=== PATIENT | male | born 1985 | race American Indian/Alaskan Native ===

== ENCOUNTER 2017-01-31 21:19 | Emergency (ER) | payer MEDICAID, OTHER | END 2017-01-31 21:49 | disposition left against medical advice (07) | LOC: DL.ED 21:19 | DX: Z53.21 Procedure and treatment not carried out due to patient leaving prior to being seen by health care provider (principal) ==

== ENCOUNTER 2021-07-15 18:35 | Emergency (ER) | payer MEDICAID, OTHER ==
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
[2021-07-15 19:41] LABS: ANION GAP 18.2 mEq/L (7-13); CHLORIDE,CL 109 mmol/L (98-107); SODIUM,NA 147 mmol/L (136-145)
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
[2021-07-15] MEDS ORDERED: MVI, Adult with Vitamin K 10 ML, Folic Acid 1 MG, Thiamine 100 MG in Lactated Ringers 1... IV ONE ×4 (20:59)
[2021-07-15 22:43] LABS: BENZODIAZEPINE,URINE NEGATIVE (NEGATIVE); MDMA (ECSTASY), URINE NEGATIVE (NEGATIVE); METHADONE,URINE NEGATIVE (NEGATIVE); METHAMPHETAMINES,URINE NEGATIVE (NEGATIVE); OPIATES,URINE NEGATIVE (NEGATIVE)
[2021-07-15 22:44] LABS: AMPHETAMINES,URINE NEGATIVE (NEGATIVE); BARBITURATES,URINE NEGATIVE (NEGATIVE); OXYCODONE,URINE NEGATIVE (NEGATIVE); PHENCYCLIDINE,URINE NEGATIVE (NEGATIVE); TCA,URINE NEGATIVE (NEGATIVE)
[2021-07-15] MEDS ORDERED: Cephalexin 500 MG Cap PO ONE (22:45)
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
[2021-07-16 03:02] VITALS: BP 144/92; PULSE 90
[2021-07-16] MEDS ORDERED: Lidocaine 1% 30 ML SDV INJECT ONE (03:34)
== END 2021-07-16 04:01 | disposition home or self-care (01) ==
LOC: DL.ED 18:35
DX: S02.82XA Fracture of other specified skull and facial bones, left side, initial encounter for closed fracture (principal); F10.10 Alcohol abuse, uncomplicated; I10 Essential (primary) hypertension; E11.9 Type 2 diabetes mellitus without complications; Z20.822 Contact with and (suspected) exposure to COVID-19; Y90.8 Blood alcohol level of 240 mg/100 ml or more; Y04.0XXA Assault by unarmed brawl or fight, initial encounter
CPT/HCPCS: 36415; 70450; 70486; 72125; 80053; 80305; 80307; 81001; 85025; 87635; 96365; 99285; A9270; J3411; J7120; J3490; U0002

== ENCOUNTER 2021-09-26 10:34 | Emergency (ER) | payer BC ==
[2021-09-26 11:41] VITALS: BP 158/82; PULSE 93
[2021-09-26 12:12] LABS: ANION GAP 18.3 mEq/L (7-13); CHLORIDE,CL 103 mmol/L (98-107); SODIUM,NA 139 mmol/L (136-145)
[2021-09-26] MEDS ORDERED: Calcium Chloride 10% 1 GM/10 ML Syringe IVPUSH ONE (12:23)
== END 2021-09-26 13:04 | disposition home or self-care (01) ==
LOC: DL.ED 10:34
DX: E11.649 Type 2 diabetes mellitus with hypoglycemia without coma (principal); F10.10 Alcohol abuse, uncomplicated; E83.51 Hypocalcemia; I10 Essential (primary) hypertension; Z79.899 Other long term (current) drug therapy; Z79.84 Long term (current) use of oral hypoglycemic drugs; Z20.822 Contact with and (suspected) exposure to COVID-19
CPT/HCPCS: 36415; 80053; 80307; 85025; 87430; 96374; 99285-25; U0002

== ENCOUNTER 2023-03-12 02:17 | Emergency (ER) | payer BC, MEDICAID ==
[2023-03-12 02:18] VITALS: BP 157/70; PULSE 125
[2023-03-12] MEDS ORDERED: Sodium Chloride 0.9% 10 ML Syringe FLUSH PRN (02:18)
[2023-03-12] MEDS ORDERED: Sodium Chloride 0.9% 1,000 ML IV ONE ×3 (02:20→05:28)
[2023-03-12 02:31] LABS: BASOPHILS PERCENT AUTO 0.2 % (0.0-1.0); EOSINOPHILS PERCENT AUTO 0.7 % (1.0-3.0); HEMATOCRIT 31.6 % (40.0-54.0); HEMOGLOBIN 9.9 g/dL (14.0-18.0); LYMPHOCYTES PERCENT AUTO 8.2 % (20.5-50.1); MEAN CORPUSCULAR HEMOGLOBIN 25.2 pg (27.0-34.0); MEAN CORPUSCULAR HGB CONC 31.3 g/dL (33.0-35.0); MEAN CORPUSCULAR VOLUME 80.4 fL (80-100); MONOCYTES PERCENT AUTO 6.7 % (2-8); NEUTROPHILS PERCENT AUTO 84.2 % (42.2-75.2); PLATELET COUNT,PLT 121 10^3/uL (150-450); RED BLOOD CELL COUNT 3.93 10^6/uL (4.6-6.2); WHITE BLOOD CELL COUNT,WBC 8.5 10^3/uL (5.0-10.0)
[2023-03-12 02:52] LABS: PROTHROMBIN TIME 10.6 SEC (9.0-12.0); PTT,PARTIAL THROMBOPLSTIN TIME 24.3 SEC (22.0-34.0)
[2023-03-12 02:56] LABS: LACTIC ACID 3.4 mmol/L (0.4-2.0)
[2023-03-12 03:00] LABS: ALANINE AMINOTRANSFERASE,ALT 80 U/L (16-63); ALKALINE PHOSPHATASE 107 U/L (46-116); ANION GAP 16.9 mEq/L (7-13); ASPARTATE AMNIOTRANSFERASE,AST 73 U/L (15-37); BILIRUBIN TOTAL 0.4 mg/dL (0.2-1.0); BLOOD UREA NITROGEN,BUN 10 mg/dL (7-18); BUN/CREATININE RATIO 9.5 (No establ ref range); CALCIUM 7.5 mg/dL (8.5-10.1); CARBON DIOXIDE,CO2 23 mmol/L (21-32); CHLORIDE,CL 107 mmol/L (98-107); CREATININE 1.05 mg/dL (0.70-1.30); EST CRCL DRUG DOSING (CG) 105.72 mL/min; GLUCOSE RANDOM 239 mg/dL (70-99); POTASSIUM,K 3.9 mmol/L (3.5-5.1); PROTEIN TOTAL,TP 8.4 g/dL (6.4-8.2); SODIUM,NA 143 mmol/L (136-145)
[2023-03-12 03:01] LABS: A/G RATIO 0.56; C-REACTIVE PROTEIN < 0.2 mg/dL (0.0-0.9); ESTIMATED GFR 94 mL/min (>=60); ETHANOL BLOOD MEDICAL 358 mg/dL (0)
[2023-03-12 03:02] LABS: MAGNESIUM 0.8 mg/dL (1.8-2.4)
[2023-03-12] MEDS ORDERED: Magnesium Sulfate/Water 2 GM in Premix Bag 1 BAG IV ONE ×2 (03:03→03:11)
[2023-03-12] MEDS ORDERED: Acetaminophen 500 MG Tab PO ONE (05:27)
[2023-03-12 05:48] LABS: APPEARANCE,URINE CLEAR (CLEAR); BILIRUBIN,URINE NEGATIVE (NEGATIVE); COLOR,URINE YELLOW (YELLOW); GLUCOSE,URINE 100 (NEGATIVE); KETONES,URINE NEGATIVE (NEGATIVE); LEUKOCYTE ESTERASE,URINE NEGATIVE (NEGATIVE); NITRITE,URINE NEGATIVE (NEGATIVE); OCCULT BLOOD,URINE NEGATIVE (NEGATIVE); PH,URINE 5.5 (5.0-9.0); PROTEIN,URINE NEGATIVE (NEGATIVE); UROBILINOGEN,URINE 0.2 mg/dL (0.2-1.0)
[2023-03-12 05:50] LABS: AMPHETAMINES,URINE NEGATIVE (NEGATIVE); BARBITURATES,URINE NEGATIVE (NEGATIVE); BENZODIAZEPINE,URINE NEGATIVE (NEGATIVE); MDMA (ECSTASY), URINE NEGATIVE (NEGATIVE); METHADONE,URINE NEGATIVE (NEGATIVE); METHAMPHETAMINES,URINE NEGATIVE (NEGATIVE); OPIATES,URINE NEGATIVE (NEGATIVE); OXYCODONE,URINE NEGATIVE (NEGATIVE); PHENCYCLIDINE,URINE NEGATIVE (NEGATIVE); TCA,URINE NEGATIVE (NEGATIVE)
[2023-03-12 06:22] LABS: MAGNESIUM 1.7 mg/dL (1.8-2.4)
== END 2023-03-12 07:43 | disposition home or self-care (01) ==
LOC: DL.ED 02:17
DX: F10.920 Alcohol use, unspecified with intoxication, uncomplicated (principal); E83.42 Hypomagnesemia; R50.9 Fever, unspecified; Z20.822 Contact with and (suspected) exposure to COVID-19
CPT/HCPCS: 36415; 80053; 80305; 80307; 81003; 82947; 83605; 83735; 84100; 84484; 85025; 85610; 85730; 86140; 86788; 87635; 87804; 93005; 96361; 96365; 96366; 99285; A9270; J3475; J7030; 93010; 99284; J3490; U0002

== ENCOUNTER 2023-05-08 18:11 | Emergency (ER) | payer MEDICAID ==
[2023-05-08] MEDS ORDERED: Sodium Chloride 0.9% 10 ML Syringe FLUSH PRN (18:15)
[2023-05-08 18:32] LABS: BASOPHILS PERCENT AUTO 0.1 % (0.0-1.0); LYMPHOCYTES PERCENT AUTO 8.6 % (20.5-50.1); MEAN CORPUSCULAR HEMOGLOBIN 26.1 pg (27.0-34.0); MEAN CORPUSCULAR HGB CONC 31.6 g/dL (33.0-35.0); MEAN CORPUSCULAR VOLUME 82.6 fL (80-100); MONOCYTES PERCENT AUTO 3.9 % (2-8); NEUTROPHILS PERCENT AUTO 87.4 % (42.2-75.2); PLATELET COUNT,PLT 160 10^3/uL (150-450); WHITE BLOOD CELL COUNT,WBC 11.9 10^3/uL (5.0-10.0)
[2023-05-08] MEDS ORDERED: Tranexamic Acid 1,000 MG in Sodium Chloride 0.9% 500 ML IV ONE (18:35)
[2023-05-08] MEDS ORDERED: Pantoprazole 40 MG Vial IVPUSH ONE (18:37)
[2023-05-08] MEDS ORDERED: Pantoprazole 40 MG in Sodium Chloride 0.9% 100 ML IV SCH (18:45)
[2023-05-08 18:47] LABS: INR 1.2 (0.9-1.2); PROTHROMBIN TIME 12.6 SEC (9.0-12.0)
[2023-05-08 18:53] LABS: ALANINE AMINOTRANSFERASE,ALT 37 U/L (16-63); ALBUMIN 2.2 g/dL (3.4-5.0); ALKALINE PHOSPHATASE 126 U/L (46-116); ASPARTATE AMNIOTRANSFERASE,AST 44 U/L (15-37); BILIRUBIN TOTAL 1.1 mg/dL (0.2-1.0); BLOOD UREA NITROGEN,BUN 52 mg/dL (7-18); BUN/CREATININE RATIO 35.1 (No establ ref range); C-REACTIVE PROTEIN 3.17 ng/dL (<=0.30); CALCIUM 8.4 mg/dL (8.5-10.1); CARBON DIOXIDE,CO2 21 mmol/L (21-32); CHLORIDE,CL 99 mmol/L (98-107); CREATININE 1.48 mg/dL (0.70-1.30); EST CRCL DRUG DOSING (CG) 75.01 mL/min; GLUCOSE RANDOM 309 mg/dL (70-99); PROTEIN TOTAL,TP 7.1 g/dL (6.4-8.2); SODIUM,NA 131 mmol/L (136-145)
[2023-05-08 19:06] LABS: A/G RATIO 0.45; ESTIMATED GFR 62 mL/min (>=60)
[2023-05-08 19:07] LABS: ETHANOL BLOOD MEDICAL < 3 mg/dL (0); LACTIC ACID 6.1 mmol/L (0.4-2.0); MAGNESIUM 0.9 mg/dL (1.8-2.4)
[2023-05-08] MEDS ORDERED: Magnesium Sulfate/Water 2 GM in Premix Bag 1 BAG IV ONE (19:17)
[2023-05-08] MEDS ORDERED: Ondansetron 4 MG/2 ML SDV IVPUSH ONE (19:29)
[2023-05-08 20:48] VITALS: BP 104/54; PULSE 134
[2023-05-08 21:33] LABS: APPEARANCE,URINE SLIGHTLY CLOUDY (CLEAR); BILIRUBIN,URINE NEGATIVE (NEGATIVE); COLOR,URINE DARK YELLOW (YELLOW); GLUCOSE,URINE 100 (NEGATIVE); KETONES,URINE TRACE (NEGATIVE); LEUKOCYTE ESTERASE,URINE TRACE (NEGATIVE); NITRITE,URINE NEGATIVE (NEGATIVE); OCCULT BLOOD,URINE TRACE-INTACT (NEGATIVE); PH,URINE 5.5 (5.0-9.0); PROTEIN,URINE NEGATIVE (NEGATIVE); UROBILINOGEN,URINE 0.2 mg/dL (0.2-1.0)
[2023-05-08 21:35] LABS: AMPHETAMINES,URINE NEGATIVE (NEGATIVE); BARBITURATES,URINE NEGATIVE (NEGATIVE); BENZODIAZEPINE,URINE NEGATIVE (NEGATIVE); MDMA (ECSTASY), URINE NEGATIVE (NEGATIVE); METHADONE,URINE NEGATIVE (NEGATIVE); METHAMPHETAMINES,URINE NEGATIVE (NEGATIVE); OPIATES,URINE NEGATIVE (NEGATIVE); OXYCODONE,URINE NEGATIVE (NEGATIVE); PHENCYCLIDINE,URINE NEGATIVE (NEGATIVE); TCA,URINE NEGATIVE (NEGATIVE)
[2023-05-08 21:44] LABS: BACTERIA,URINE FEW /HPF (0-FEW/HPF); EPITHELIAL CELLS,URINE FEW /HPF (NOT SEEN); MUCUS,URINE MODERATE /LPF (NOT SEEN); RBC,URINE 0-5 /HPF (0-5)
[2023-05-08 21:45] LABS: HYALINE CASTS,URINE FEW
== END 2023-05-08 22:18 ==
LOC: DL.ED 18:11
DX: K92.2 Gastrointestinal hemorrhage, unspecified (principal); N17.9 Acute kidney failure, unspecified; R00.0 Tachycardia, unspecified; F10.20 Alcohol dependence, uncomplicated; E11.65 Type 2 diabetes mellitus with hyperglycemia; E83.42 Hypomagnesemia; E87.20 Acidosis, unspecified; D62 Acute posthemorrhagic anemia; I10 Essential (primary) hypertension; E66.9 Obesity, unspecified; Z68.39 Body mass index [BMI] 39.0-39.9, adult; Z79.84 Long term (current) use of oral hypoglycemic drugs; Z79.899 Other long term (current) drug therapy
CPT/HCPCS: 36415; 36430; 80053; 80305-QW; 80307; 81001; 82272; 83605; 83735; 85025; 85610; 86140; 86850; 86900; 86901; 86920; 86922; 87086; 96365; 96366; 96368; 96375; 99285; 99285-25; C9113; J2405; J3475; J3490; J7040; P9016

== ENCOUNTER 2023-11-07 22:54 | Emergency (ER) | payer MEDICAID ==
[2023-11-07] MEDS: Sodium Chloride 0.9% 10 ML Syringe FLUSH PRN (23:19)
[2023-11-07] MEDS: Sodium Chloride 0.9% 1,000 ML IV SCH (23:22)
[2023-11-07 23:24] LABS: BASOPHILS PERCENT AUTO 2.9 % (0.0-1.0); EOSINOPHILS PERCENT AUTO 1.2 % (1.0-3.0); HEMATOCRIT 31.5 % (40.0-54.0); HEMOGLOBIN 9.8 g/dL (14.0-18.0); LYMPHOCYTES PERCENT AUTO 32.9 % (20.5-50.1); MEAN CORPUSCULAR HEMOGLOBIN 25.5 pg (27.0-34.0); MEAN CORPUSCULAR HGB CONC 31.1 g/dL (33.0-35.0); MEAN CORPUSCULAR VOLUME 81.8 fL (80-100); MONOCYTES PERCENT AUTO 7.8 % (2-8); NEUTROPHILS PERCENT AUTO 55.2 % (42.2-75.2); PLATELET COUNT,PLT 50 10^3/uL (150-450); RED BLOOD CELL COUNT 3.85 10^6/uL (4.6-6.2); WHITE BLOOD CELL COUNT,WBC 2.4 10^3/uL (5.0-10.0)
[2023-11-07 23:44] LABS: A/G RATIO 0.6; ALBUMIN 3.4 g/dL (3.4-5.0); ANION GAP 19.9 mEq/L (7-13); BILIRUBIN TOTAL 2.5 mg/dL (0.2-1.0); BUN/CREATININE RATIO 22.2 (No establ ref range); CREATININE 1.08 mg/dL (0.70-1.30); EST CRCL DRUG DOSING (CG) 101.79 mL/min; POTASSIUM,K 3.9 mmol/L (3.5-5.1); PROTEIN TOTAL,TP 9.2 g/dL (6.4-8.2)
[2023-11-08 06:35] VITALS: BP 125/77; PULSE 84
== END 2023-11-08 06:23 | disposition home or self-care (01) ==
LOC: DL.ED 22:54
DX: S40.012A Contusion of left shoulder, initial encounter (principal); F10.120 Alcohol abuse with intoxication, uncomplicated; I10 Essential (primary) hypertension; Z79.899 Other long term (current) drug therapy; Z79.84 Long term (current) use of oral hypoglycemic drugs; Y90.9 Presence of alcohol in blood, level not specified; W19.XXXA Unspecified fall, initial encounter
CPT/HCPCS: 36415; 71045; 73030-LT; 80053; 80307; 85025; 99284; J3490; J7030

== ENCOUNTER 2025-01-22 14:30 | Inpatient (IN) | payer MEDICAID ==
[2025-01-22] MEDS ORDERED: Sodium Chloride 0.9% 10 ML Syringe FLUSH PRN (14:58)
[2025-01-22 15:06] LABS: BASOPHILS PERCENT AUTO 0.6 % (0.0-1.0); EOSINOPHILS PERCENT AUTO 1.3 % (1.0-3.0); LYMPHOCYTES PERCENT AUTO 21.3 % (20.5-50.1); MONOCYTES PERCENT AUTO 16.8 % (2-8); NEUTROPHILS PERCENT AUTO 60.0 % (42.2-75.2); PLATELET COUNT,PLT 50 10^3/uL (150-450); RED BLOOD CELL COUNT 3.57 10^6/uL (4.6-6.2); WHITE BLOOD CELL COUNT,WBC 3.1 10^3/uL (5.0-10.0)
[2025-01-22 15:21] LABS: INR 1.1 (0.9-1.2); PTT,PARTIAL THROMBOPLSTIN TIME 29.3 SEC (22.0-34.0)
[2025-01-22 15:26] LABS: ALANINE AMINOTRANSFERASE,ALT 27.0 U/L (16-63); ASPARTATE AMNIOTRANSFERASE,AST 92.0 U/L (15-37); BILIRUBIN TOTAL 3.8 mg/dL (0.2-1.0); BLOOD UREA NITROGEN,BUN 9.0 mg/dL (7-18); CARBON DIOXIDE,CO2 23.0 mmol/L (21-32); CHLORIDE,CL 98.0 mmol/L (98-107); CREATININE 0.94 mg/dL (0.70-1.30); EST CRCL DRUG DOSING (CG) 115.8 mL/min; GLUCOSE RANDOM 138.0 mg/dL (70-99); POTASSIUM,K 3.1 mmol/L (3.5-5.1); PROTEIN TOTAL,TP 8.9 g/dL (6.4-8.2); SODIUM,NA 132.0 mmol/L (136-145)
[2025-01-22 15:27] LABS: LACTIC ACID 1.7 mmol/L (0.4-2.0)
[2025-01-22 15:28] LABS: A/G RATIO 0.39; ESTIMATED GFR 106.0 mL/min (>=60)
[2025-01-22 15:34] LABS: D-DIMER QUANTITATIVE 2110.0 ng/mL (0-400)
[2025-01-22] MEDS: Magnesium Sulfate 2 GM/50 mL 2 GM in Premix Bag 1 BAG IV ONE ×3 (15:43→20:00)
[2025-01-22] MEDS: Iopamidol 755 Mg/ML 100 ML Bottle IVPUSH ONE (16:07)
[2025-01-22 16:15] LABS: APPEARANCE,URINE CLEAR (CLEAR); GLUCOSE,URINE 100 (NEGATIVE); OCCULT BLOOD,URINE MODERATE (NEGATIVE)
[2025-01-22 16:18] LABS: AMPHETAMINES,URINE NEGATIVE (NEGATIVE); BARBITURATES,URINE NEGATIVE (NEGATIVE); MDMA (ECSTASY), URINE NEGATIVE (NEGATIVE); METHAMPHETAMINES,URINE NEGATIVE (NEGATIVE); OPIATES,URINE NEGATIVE (NEGATIVE); OXYCODONE,URINE NEGATIVE (NEGATIVE); PHENCYCLIDINE,URINE NEGATIVE (NEGATIVE); TCA,URINE NEGATIVE (NEGATIVE)
[2025-01-22 16:37] LABS: EPITHELIAL CELLS,URINE OCCASIONAL /HPF (NOT SEEN)
[2025-01-22] MEDS: Potassium Chloride 10 MEQ Tab.ER PO ONE (19:36)
[2025-01-22 19:39] LABS: BLOOD UREA NITROGEN,BUN 7.0 mg/dL (7-18); CARBON DIOXIDE,CO2 25.0 mmol/L (21-32); CREATININE 0.89 mg/dL (0.70-1.30); EST CRCL DRUG DOSING (CG) 122.31 mL/min; GLUCOSE RANDOM 118.0 mg/dL (70-99); POTASSIUM,K 3.0 mmol/L (3.5-5.1)
[2025-01-22 19:43] LABS: CHLORIDE,CL 100.0 mmol/L (98-107); ESTIMATED GFR 112.0 mL/min (>=60); SODIUM,NA 133.0 mmol/L (136-145)
[2025-01-22] MEDS: NS with KCl 40mEq 1,000 ML IV SCH (20:00)
[2025-01-22] MEDS ORDERED: 50% Dextrose in Water 50 ML Syringe IVPUSH PRN (23:18)
[2025-01-23 00:01] LABS: IRON,FE 52.0 ug/dL (65-175); PERCENT FE SATURATION 40.0 % (20.0-50.0)
[2025-01-23] MEDS: Furosemide 40 MG/4 ML VIAL IVPUSH ONE (00:21)
[2025-01-23] MEDS: MVI, Adult with Vitamin K 10 ML, Folic Acid 1 MG, Thiamine 100 MG in Lactated Ringers 1... IV ONE (00:21)
[2025-01-23 00:28] LABS: CHOLESTEROL HDL 23.0 mg/dL (40-59); CHOLESTEROL LDL CALCULATED 76.0 mg/dL (0-100); CHOLESTEROL TOTAL 117.0 mg/dL (0-199); FOLIC ACID 4.2 ng/mL (8.6-58.9); TSH ULTRASENSITIVE 1.7 uIU/mL (0.36-3.74)
[2025-01-23 00:38] LABS: B-TYPE NATRIURETIC PEPTIDE,BNP 95.0 pg/ml (0-100)
[2025-01-23 06:29] LABS: BASOPHILS PERCENT AUTO 1.0 % (0.0-1.0); EOSINOPHILS PERCENT AUTO 3.3 % (1.0-3.0); LYMPHOCYTES PERCENT AUTO 22.8 % (20.5-50.1); MONOCYTES PERCENT AUTO 18.8 % (2-8); NEUTROPHILS PERCENT AUTO 54.1 % (42.2-75.2); PLATELET COUNT,PLT 58 10^3/uL (150-450); RED BLOOD CELL COUNT 3.42 10^6/uL (4.6-6.2); WHITE BLOOD CELL COUNT,WBC 3.0 10^3/uL (5.0-10.0)
[2025-01-23 06:53] LABS: A/G RATIO 0.37; ALANINE AMINOTRANSFERASE,ALT 22.0 U/L (16-63); ASPARTATE AMNIOTRANSFERASE,AST 70.0 U/L (15-37); BILIRUBIN DIRECT 2.6 mg/dL (0.0-0.2); BILIRUBIN INDIRECT 1.9; BILIRUBIN TOTAL 4.5 mg/dL (0.2-1.0); BLOOD UREA NITROGEN,BUN 5.0 mg/dL (7-18); CARBON DIOXIDE,CO2 27.0 mmol/L (21-32); CHLORIDE,CL 99.0 mmol/L (98-107); CREATININE 0.91 mg/dL (0.70-1.30); EST CRCL DRUG DOSING (CG) 119.62 mL/min; GLUCOSE RANDOM 87.0 mg/dL (70-99); PHOSPHORUS 1.8 mg/dL (2.6-4.7); POTASSIUM,K 3.3 mmol/L (3.5-5.1); PROTEIN TOTAL,TP 8.1 g/dL (6.4-8.2); SODIUM,NA 132.0 mmol/L (136-145)
[2025-01-23 06:54] LABS: ESTIMATED GFR 110.0 mL/min (>=60)
[2025-01-23 06:59] LABS: INR 1.3 (0.9-1.2)
[2025-01-23] MEDS: MAGNESIUM SULFATE IV ONE (07:30)
[2025-01-23] MEDS: Meropenem 1 GM SDV IVPUSH SCH (09:09)
[2025-01-23] MEDS: Potassium Chloride 20 MEQ in Premix Bag 1 BAG IV ONE (10:20)
[2025-01-23] MEDS: Lactulose Soln 10 GM/15 ML 30 ML UD Cup PO ONE (10:20)
[2025-01-23] MEDS: Insulin Glarg,Human.Rec.Analog 100 Unit/ML 10 ML Vial SUBCUT SCH (21:11)
[2025-01-24 07:08] LABS: BASOPHILS PERCENT AUTO 0.6 % (0.0-1.0); EOSINOPHILS PERCENT AUTO 3.3 % (1.0-3.0); LYMPHOCYTES PERCENT AUTO 18.9 % (20.5-50.1); MONOCYTES PERCENT AUTO 13.8 % (2-8); NEUTROPHILS PERCENT AUTO 63.4 % (42.2-75.2); PLATELET COUNT,PLT 84 10^3/uL (150-450); RED BLOOD CELL COUNT 3.33 10^6/uL (4.6-6.2); WHITE BLOOD CELL COUNT,WBC 3.3 10^3/uL (5.0-10.0)
[2025-01-24 07:28] LABS: BLOOD UREA NITROGEN,BUN 8.0 mg/dL (7-18); CARBON DIOXIDE,CO2 26.0 mmol/L (21-32); CHLORIDE,CL 103.0 mmol/L (98-107); CREATININE 1.08 mg/dL (0.70-1.30); EST CRCL DRUG DOSING (CG) 100.79 mL/min; GLUCOSE RANDOM 120.0 mg/dL (70-99); POTASSIUM,K 3.7 mmol/L (3.5-5.1); SODIUM,NA 134.0 mmol/L (136-145); VANCOMYCIN RANDOM 20.3 ug/mL (No Normal Range)
[2025-01-24 07:32] LABS: ESTIMATED GFR 90.0 mL/min (>=60)
[2025-01-24] MEDS: Magnesium Sulf/Wat 4 GM/50 mL 4 GM in Premix Bag 1 BAG IV ONE (09:36)
[2025-01-24] MEDS: Furosemide 40 MG/4 ML VIAL IVPUSH ONE (09:38)
[2025-01-24] MEDS: Phosphorus #1 250 MG Tab PO SCH (09:38)
[2025-01-25 06:01] LABS: BASOPHILS PERCENT AUTO 0.5 % (0.0-1.0); EOSINOPHILS PERCENT AUTO 3.4 % (1.0-3.0); LYMPHOCYTES PERCENT AUTO 16.1 % (20.5-50.1); MONOCYTES PERCENT AUTO 10.2 % (2-8); NEUTROPHILS PERCENT AUTO 69.8 % (42.2-75.2); PLATELET COUNT,PLT 100 10^3/uL (150-450); RED BLOOD CELL COUNT 3.15 10^6/uL (4.6-6.2); WHITE BLOOD CELL COUNT,WBC 3.8 10^3/uL (5.0-10.0)
[2025-01-25 06:15] LABS: BLOOD UREA NITROGEN,BUN 11.0 mg/dL (7-18); CARBON DIOXIDE,CO2 27.0 mmol/L (21-32); CHLORIDE,CL 104.0 mmol/L (98-107); CREATININE 1.02 mg/dL (0.70-1.30); EST CRCL DRUG DOSING (CG) 106.72 mL/min; GLUCOSE RANDOM 130.0 mg/dL (70-99); POTASSIUM,K 3.5 mmol/L (3.5-5.1); SODIUM,NA 138.0 mmol/L (136-145)
[2025-01-25 06:16] LABS: ESTIMATED GFR 96.0 mL/min (>=60)
[2025-01-25 06:20] LABS: CREATININE 1.02 mg/dL (0.70-1.30); EST CRCL DRUG DOSING (CG) 106.72 mL/min; ESTIMATED GFR 96.0 mL/min (>=60)
[2025-01-25 06:21] LABS: VANCOMYCIN RANDOM 32.0 ug/mL (No Normal Range)
[2025-01-25] MEDS: Magnesium Sulfate 2 GM/50 mL 2 GM in Premix Bag 1 BAG IV ONE (08:27)
[2025-01-25 11:42] LABS: HAV AB IGM Negative (Negative); HBC IGM Negative (Negative); HEP B SURG AG Negative (Negative); HEP C AB BY CIA High Pos (Negative); HEP C AB BY CIA INDEX >11.00 IV
[2025-01-26 08:12] VITALS: BP 141/78; PULSE 74
[2025-01-26 09:06] LABS: CREATININE 1.0 mg/dL (0.70-1.30); EST CRCL DRUG DOSING (CG) 80.87 mL/min; VANCOMYCIN RANDOM 21.5 ug/mL (No Normal Range)
[2025-01-26 09:13] LABS: ESTIMATED GFR 98.0 mL/min (>=60)
[2025-01-26 22:42] LABS: HEP C QNT BY NAAT (IU/mL) 28600 IU/mL; HEP C QNT BY NAAT (log IU/mL) 4.46 log IU/mL; HEP C QNT BY NAAT INTERP Detected (Not Detected)
== END 2025-01-26 13:25 | disposition home or self-care (01) | DRG 872 ==
LOC: DL.ED 14:30 → DL.MS 20:00
PROVIDERS: ADMIT Internal Medicine; ATTEND Internal Medicine
DX: A41.9 Sepsis, unspecified organism (principal); L03.115 Cellulitis of right lower limb; D61.818 Other pancytopenia; I42.9 Cardiomyopathy, unspecified; E87.1 Hypo-osmolality and hyponatremia; E44.1 Mild protein-calorie malnutrition; K21.9 Gastro-esophageal reflux disease without esophagitis; E66.9 Obesity, unspecified; E83.42 Hypomagnesemia; E87.6 Hypokalemia; K74.60 Unspecified cirrhosis of liver; D69.6 Thrombocytopenia, unspecified; I11.0 Hypertensive heart disease with heart failure; F10.90 Alcohol use, unspecified, uncomplicated; E11.65 Type 2 diabetes mellitus with hyperglycemia; Z79.899 Other long term (current) drug therapy; Z79.84 Long term (current) use of oral hypoglycemic drugs; Z98.890 Other specified postprocedural states; Z68.36 Body mass index [BMI] 36.0-36.9, adult
CPT/HCPCS: 36415; 71045; 71275; 80048; 80053; 80061; 80074; 80076; 80202; 80305-QW; 81001; 82140; 82272; 82550; 82565; 82607; 82746; 82947; 82977; 83036; 83540; 83550; 83605; 83735; 83880; 84100; 84425; 84439; 84443; 84484; 85025; 85379; 85610; 85730; 86140; 87040; 87070; 87075; 87522; 93005; 93971; A9270-GY; J0612; J0696; J1815-GY; J1938; J2185; J2470; J2543; J3371; J3372; J3411; J3475; J3480; J3490; J7030; J7040; J7120; Q9967